=== PATIENT | female | born 1965 | race Caucasian/White ===

== ENCOUNTER 2016-08-25 09:31 | Emergency (ER) | payer BC, OTHER ==
--- NOTE | 2016-08-25 09:58 | UC ---
Throat Pain/Nasal Franck HPI - HPI Summary HPI Summary: complaint of nasal congestion and cough that started approx 10 days ago dry cough which is worse ant night coughing so hard last night that she vomited 1x sinus pressure that is increasing frequent headaches mild sore throat from coughing feels fatigued denies fever and chills has been mucinex and tylenol tessalon without much relief - History of Current Complaint Chief Complaint: UCRespiratory Stated Complaint: COUGH EARS SORE THROAT ACHY Time Seen by Provider: 08/25/16 09:50 Hx Obtained From: Patient - Allergies/Home Medications Allergies/Adverse Reactions: Allergies Allergy/AdvReac Type Severity Reaction Status Date / Time Amoxicillin Allergy Rash Verified 08/25/16 09:38 Home Medications: Home Medications Acetaminophen [Tylenol] 650 mg PO Q4H PRN 08/25/16 [History Confirmed 08/25/16] Venlafaxine TAB (NF) [Effexor TAB (NF)] 25 mg PO DAILY 08/25/16 [History Confirmed 08/25/16] PMH/Surg Hx/FS Hx/Imm Hx Previously Healthy: Yes - Surgical History Surgical History: Yes Surgery Procedure, Year, and Place: breast reduction - Family History Known Family History: Negative: Cardiac Disease, Hypertension, Diabetes - Social History Occupation: Employed Full-time Lives: With Family Alcohol Use: None Substance Use Type: None Smoking Status (MU): Never Smoked Tobacco - Immunization History Most Recent Influenza Vaccination: 2016 Review of Systems Constitutional: Negative Skin: Negative Eyes: Negative ENT: Sore Throat, Ear Ache, Nasal Discharge Respiratory: Cough Cardiovascular: Negative Gastrointestinal: Negative Genitourinary: Negative Motor: Negative Neurovascular: Negative Musculoskeletal: Negative Neurological: Headache Psychological: Negative All Other Systems Reviewed And Are Negative: Yes Physical Exam Triage Information Reviewed: Yes Appearance: Well-Appearing, Well-Nourished Vital Signs: Initial Vital Signs Temp 97 F 08/25/16 09:40 Pulse 78 08/25/16 09:40 Resp 18 08/25/16 09:40 Pulse Ox 98 08/25/16 09:40 Vital Signs Reviewed: Yes Eyes: Positive: Conjunctiva Clear ENT: Positive: Pharyngeal erythema, Nasal congestion, Nasal drainage, TMs normal , Other: - frontal and maxillary sinus tenderness. Negative: TM bulging Neck: Positive: No Lymphadenopathy Respiratory: Positive: Lungs clear, Normal breath sounds, No respiratory distress, No accessory muscle use Cardiovascular: Positive: RRR, No Murmur, Pulses Normal Abdomen Description: Positive: Nontender, Soft Musculoskeletal: Positive: No Edema Neurological Exam: Normal Psychological Exam: Normal Skin Exam: Normal Throat Pain/Nasal Course/Dx - Differential Dx/Diagnosis Differential Diagnosis/HQI/PQRI: Sinusitis, Tonsillitis, URI Provider Diagnoses: sinusitis Discharge - Discharge Plan Condition: Stable Disposition: HOME Prescriptions: Azithromycin TAB* [Zithromax TAB (Z-FEMI) 250 mg #6 tabs] 2 tab PO .TODAY, THEN 1 DAILY #1 femi Guaifenesin-Codeine [Cheratussin AC] 10 syp PO TID #120 syp MDD 30 ml Patient Education Materials: Sinusitis (ED) Forms: *Work Release Referrals: Non Staff,Doctor [Primary Care Provider] - Donna White [Nurse Practitioner] - Additional Instructions: Please take antibiotic as directed Increase fluids and rest Take acetaminophen or ibuprofen for fever or pain Please review your discharge instructions. If your symptoms do not improve please call your primary care provider or return to urgent care.
[2016-08-25 10:13] VITALS: BP 136/72
== END 2016-08-25 10:14 | disposition home or self-care (01) ==
LOC: UCCORT 09:31
DX: J32.9 Chronic sinusitis, unspecified (principal); Z88.1 Allergy status to other antibiotic agents
CPT/HCPCS: 99212; G0463

== ENCOUNTER 2017-04-06 11:37 | Emergency (ER) | payer BC ==
[2017-04-06 11:53] VITALS: BP 183/99
--- NOTE | 2017-04-06 12:21 | UC ---
Throat Pain/Nasal Franck HPI - HPI Summary HPI Summary: 51 female presents to with complaints of sinus congestion, pain, headache, ear fullness and cough that has been ongoing for the past 2-3 days. States it has worsened over the past couple of days and she does not feel mucinex and ibuprofen is helping. Patient admits to also having some fever/chills. Gets sinus infections frequently. No other complaints. PMHx includes HTN, has not taken medication in the past couple of days. Also complains of fatigue and body aches. Is bringing some stuff up when she coughs on occasion. Denies blood. Denies trouble breathing and chest pain. Coughing is worse when laying down, due to post nasal drip. - History of Current Complaint Chief Complaint: UCRespiratory Stated Complaint: SINUS EARS Time Seen by Provider: 04/06/17 11:45 Hx Obtained From: Patient Onset/Duration: Sudden Onset, Lasting Days, Still Present, Worse Since Severity: Moderate Pain Intensity: 7 Pain Scale Used: 0-10 Numeric Cough: Productive - at times Associated Signs & Symptoms: Positive: Sinus Discomfort, Nasal Discharge, Fever - Allergies/Home Medications Allergies/Adverse Reactions: Allergies Allergy/AdvReac Type Severity Reaction Status Date / Time Ciprofloxacin [From Cipro] Allergy Severe Rash Verified 04/06/17 11:44 Amoxicillin Allergy Rash Verified 04/06/17 11:44 Home Medications: Home Medications Hydrochlorothiazide TAB* [Hydrodiuril TAB*] 25 mg PO DAILY 04/06/17 [History Confirmed 04/06/17] Ibuprofen TAB* [Advil TAB*] 400 mg PO Q6H PRN 04/06/17 [History Confirmed ] Phenylephrine-Diphenhydramine- [MUCINEX FAST-MAX DAY/NIGH (Tablet)] 1 mis PO PRN 04/06/17 [History] PMH/Surg Hx/FS Hx/Imm Hx Cardiovascular History: Hypertension - Surgical History Surgical History: Yes Surgery Procedure, Year, and Place: breast reduction - Family History Known Family History: Negative: Cardiac Disease, Hypertension, Diabetes - Social History Alcohol Use: None Substance Use Type: None Smoking Status (MU): Never Smoked Tobacco - Immunization History Most Recent Influenza Vaccination: FALL 2016 Review of Systems Constitutional: Fever, Chills, Fatigue ENT: Ear Ache, Nasal Discharge, Sinus Congestion, Sinus Pain/Tenderness Respiratory: Cough Cardiovascular: Negative Gastrointestinal: Negative Musculoskeletal: Myalgia Neurological: Headache All Other Systems Reviewed And Are Negative: Yes Physical Exam Triage Information Reviewed: Yes Appearance: No Pain Distress, Well-Nourished, Ill-Appearing Vital Signs: Initial Vital Signs Temp 97.6 F 04/06/17 11:46 Pulse 81 04/06/17 11:46 Resp 20 04/06/17 11:46 BP 183/99 04/06/17 11:46 Pulse Ox 99 04/06/17 11:46 elevated BP noted, patient has HTN and has not taken medication in the past 2 days due to feeling ill. asymptomatic. encouraged taking as it is very important. rest of vitals normal. Vital Signs Reviewed: Yes Eyes: Positive: Conjunctiva Clear ENT: Positive: Normal ENT inspection, Hearing grossly normal, Pharynx normal - post nasal drip noted, Nasal congestion, TMs normal - serous effusion behind right TM, Sinus tenderness, Uvula midline. Negative: Tonsillar swelling, Tonsillar exudate Dental: Positive: Percussion Tenderness @ - maxillary b/l and frontal, Cervical Lymphadenopathy Neck: Positive: Supple, Nontender, Tenderness @ - tonsillar Respiratory: Positive: Chest non-tender, Lungs clear, Normal breath sounds, No respiratory distress, No accessory muscle use. Negative: Decreased breath sounds, Accessory muscle use, Rhonchi, Stridor, Wheezing Cardiovascular: Positive: RRR, No Murmur, Pulses Normal Abdomen Description: Positive: Nontender Bowel Sounds: Positive: Present Musculoskeletal: Positive: Strength Intact Neurological: Positive: Alert Skin Exam: Normal Throat Pain/Nasal Course/Dx - Course Course Of Treatment: appears to be suffering from sinusitis. will treat with zpack due to allergy and flonase. tessalon pearls as needed for coughing especially at bedtime. mucinex and iburpofen. hot showers, warm compresses, saline rinses, fluids and rest. follow up. aware of worsening signs and symptoms. take BP medication and recheck with pcp in 1-2 weeks. no other concerns at this time. normal vitals otherwise. - Differential Dx/Diagnosis Differential Diagnosis/HQI/PQRI: Pharyngitis, Sinusitis, URI Provider Diagnoses: sinusitis Discharge - Discharge Plan Condition: Stable Disposition: HOME Prescriptions: Azithromycin TAB* [Zithromax TAB (Z-FEMI) 250 mg #6 tabs] 2 tab PO .TODAY, THEN 1 DAILY #1 femi Benzonatate CAP* [Tessalon 100 MG CAP*] 100 mg PO TID PRN #30 cap PRN Reason: Cough Fluticasone NASAL SPRAY 50MCG* [Flonase NASAL SPRAY 50MCG*] 2 spray BOTH NARES DAILY #1 btl Patient Education Materials: Sinusitis (ED), Upper Respiratory Infection (ED), Warm Compress or Soak (ED) Forms: *Work Release Referrals: Donna White [Primary Care Provider] - Additional Instructions: Take prescribed medication as directed to help with infection. Tessalon pearls for coughing fits, as needed. Recommend continuing mucinex and ibuprofen as well. Increase fluid intake, get plenty of rest. Hot showers, warm compresses, salt water gargles and saline rinses. Wash hands frequently. Cover mouth when coughing. Claritin or zyrtec for future use to help with excess fluid build up. Any new or worsening signs/symptoms please seek medical attention. Follow up with PCP. Start taking blood pressure medication daily as directed, recheck with PCP in 1- 2 weeks.
== END 2017-04-06 12:35 | disposition home or self-care (01) ==
LOC: UCCORT 11:37
DX: J32.9 Chronic sinusitis, unspecified (principal); I10 Essential (primary) hypertension; Z88.1 Allergy status to other antibiotic agents
CPT/HCPCS: 99212; G0463

== ENCOUNTER 2018-03-03 07:37 | Emergency (ER) | payer BC ==
[2018-03-03 07:49] VITALS: BP 159/89
--- NOTE | 2018-03-03 08:07 | UC ---
Skin Complaint HPI - HPI Summary HPI Summary: 52-year-old female comes in to clinic today with a chief complaint of rash. This started yesterday. Started mostly on the abdomen and it was slightly itchy. Overnight he got worse. It's on the abdomen and onto the left flank of the lower chest and upper abdomen. She also has back pain in the lower thoracic region. No fevers or chills. Touching makes it worse. No new detergents. No known infectious contacts. She took some acetaminophen that did not help with the pain. - History of Current Complaint Chief Complaint: UCRash Time Seen by Provider: 03/03/18 07:46 Stated Complaint: SKIN CONCERN Pain Intensity: 5 - Allergy/Home Medications Allergies/Adverse Reactions: Allergies Allergy/AdvReac Type Severity Reaction Status Date / Time ciprofloxacin Allergy Intermediate Rash Verified 03/03/18 07:50 Review of Systems Constitutional: Negative Skin: Rash Eyes: Negative ENT: Negative Respiratory: Negative Cardiovascular: Negative Gastrointestinal: Negative Motor: Negative Neurovascular: Negative Musculoskeletal: Other: - lower thoracic back pain Neurological: Negative Psychological: Negative Is Patient Immunocompromised?: No All Other Systems Reviewed And Are Negative: Yes PMH/Surg Hx/FS Hx/Imm Hx Cardiovascular History: Hypertension - Surgical History Surgical History: Yes Surgery Procedure, Year, and Place: breast reduction - Family History Known Family History: Positive: Diabetes Negative: Cardiac Disease, Hypertension - Social History Alcohol Use: None Substance Use Type: None Smoking Status (MU): Never Smoked Tobacco - Immunization History Most Recent Influenza Vaccination: FALL 2016 Physical Exam Triage Information Reviewed: Yes Appearance: Well-Appearing, No Pain Distress, Well-Nourished Vital Signs: Initial Vital Signs Temp 97.9 F 03/03/18 07:45 Pulse 81 03/03/18 07:45 Resp 15 03/03/18 07:45 BP 159/89 03/03/18 07:45 Pulse Ox 97 03/03/18 07:45 Vital Signs Reviewed: Yes Eye Exam: Normal Eyes: Positive: Conjunctiva Clear Neck exam: Normal Neck: Positive: Supple Respiratory: Positive: No respiratory distress Abdomen Description: Positive: Other: - There is mild tenderness to palpation on the anterior abdomen at the site of the rash. Musculoskeletal Exam: Normal Musculoskeletal: Positive: Strength Intact, ROM Intact Neurological Exam: Normal Neurological: Positive: Alert, Muscle Tone Normal Psychological Exam: Normal Psychological: Positive: Age Appropriate Behavior Skin: Positive: Other - There is a confluent erythematous rash on the upper abdomen and onto the left lower chest or some raised areas I don't see any vesicles at this time. Course/Dx - Course Course Of Treatment: The most part probable cause for the rashes shingles. Cellulitis is also a possibility. Patient does not have a fever and does not appear toxic. If it is an allergic reaction would be a localized contact dermatitis. At this time we'll treat with valacyclovir and also Keflex. She can take Benadryl as needed. Let her know if she started with a fever her More ill she needs to get rechecked right away. - Diagnoses Provider Diagnoses: RASH Discharge - Sign-Out/Discharge Documenting (check all that apply): Patient Departure All imaging exams completed and their final reports reviewed: No Studies - Discharge Plan Condition: Stable Disposition: HOME Prescriptions: Cephalexin CAP* [Keflex CAP*] 500 mg PO QID #40 cap HYDROcodone/ACETAMIN 5-325 MG* [[place] 5-325 TAB*] 1 tab PO Q4H PRN #20 tab MDD 6 PRN Reason: Pain Valacyclovir HCl [Valacyclovir] 1 gm PO TID #21 tab Patient Education Materials: Acute Rash (ED), Shingles (ED) Referrals: Donna White [Primary Care Provider] - Additional Instructions: FOLLOW UP WITH YOUR DOCTOR IF NOT COMPLETELY IMPROVED. GET RECHECKED FOR ANY WORSENING OF YOUR CONDITION; PAIN, FEVER, YOU FEEL ILL OR QUESTIONS OR CONCERNS. - Billing Disposition and Condition Condition: STABLE Disposition: Home
== END 2018-03-03 08:14 | disposition home or self-care (01) ==
LOC: UCCORT 07:37
DX: R21 Rash and other nonspecific skin eruption (principal); I10 Essential (primary) hypertension; Z88.1 Allergy status to other antibiotic agents
CPT/HCPCS: 99212; G0463

== ENCOUNTER 2018-08-23 07:59 | Emergency (ER) | payer BC ==
[2018-08-23 08:16] VITALS: BP 156/91
[2018-08-23] MEDS ORDERED: Albuterol/Ipratropium NEB.SOL* Albuterol 2.5 MG/Ipratropium 0.5 MG 3 ML INH ONE (08:25)
--- NOTE | 2018-08-23 08:57 | UC ---
Respiratory Complaint HPI - HPI Summary HPI Summary: 53 old female who has had cold symptoms since last , approximate 5 days ago. She denies fever, mildly productive cough of clear sputum. She is a nonsmoker and no history of asthma. - History of Current Complaint Chief Complaint: UCRespiratory Stated Complaint: COUGH SINUS ACHY HEADACHE Time Seen by Provider: 08/23/18 08:09 Hx Obtained From: Patient ?: No Onset/Duration: Gradual Onset Timing: Intermittent Episodes Severity Initially: Mild Severity Currently: Mild - She states she also has some sinus pressure. Pain Intensity: 10 Character: Cough: Productive - Productive cough of clear sputum. Alleviating Factors: Nothing Associated Signs And Symptoms: Positive: URI, Nasal Congestion, Sinus Discomfort - Allergies/Home Medications Allergies/Adverse Reactions: Allergies Allergy/AdvReac Type Severity Reaction Status Date / Time ciprofloxacin Allergy Intermediate Rash Verified 08/23/18 08:10 Home Medications: Home Medications Ibuprofen TAB* [Advil TAB*] 400 mg PO Q6H PRN 08/23/18 [History Confirmed ] guaiFENesin ER TAB [Mucinex*] 1,200 mg PO BID PRN 08/23/18 [History Confirmed ] guaiFENesin LIQ* [Robitussin*] 10 ml PO Q4H PRN 08/23/18 [History Confirmed ] PMH/Surg Hx/FS Hx/Imm Hx Previously Healthy: Yes - Surgical History Surgical History: Yes Surgery Procedure, Year, and Place: breast reduction - Family History Known Family History: Positive: Diabetes Negative: Cardiac Disease, Hypertension - Social History Occupation: Employed Full-time Alcohol Use: None Substance Use Type: None Smoking Status (MU): Never Smoked Tobacco - Immunization History Most Recent Influenza Vaccination: FALL 2016 Review of Systems All Other Systems Reviewed And Are Negative: Yes ENT: Positive: Nasal Discharge - Her nasal coryza, Sinus Congestion, Sinus Pain/ Tenderness Respiratory: Positive: Cough - Dry nonproductive cough. When it is rarely productive it is clear sputum. Is Patient Immunocompromised?: No Physical Exam Triage Information Reviewed: Yes Appearance: Well-Appearing, No Pain Distress, Well-Nourished Vital Signs: Initial Vital Signs Temp 98.2 F 08/23/18 08:12 Pulse 91 08/23/18 08:12 Resp 16 04/29/19 08:12 BP 156/91 08/23/18 08:12 Pulse Ox 98 08/23/18 08:12 Vital Signs Reviewed: Yes ENT: Positive: Pharynx normal, Nasal congestion, Nasal drainage - Nasal coryza, TMs normal, Sinus tenderness, Uvula midline. Negative: Tonsillar swelling, Tonsillar exudate, Trismus, Muffled voice, Hoarse voice Neck exam: Normal Neck: Positive: Supple, Nontender, No Lymphadenopathy Respiratory: Positive: Lungs clear, No respiratory distress, No accessory muscle use, Wheezing - Patient has a mild wheeze with forced expiration. Respiratory Course/Dx - Course Course Of Treatment: DuoNeb treatment was given which resulted in a feeling of better air movement, her lungs remained clear even with coughing. At this point I believe this is more of a bronchitis and viral illness and I'm going to start her on prednisone as well as benzonatate for her cough. She is to follow-up with her primary care provider near the end of the week if no improvement. - Differential Dx/Diagnosis Provider Diagnosis: Bronchitis Discharge - Sign-Out/Discharge Documenting (check all that apply): Patient Departure All imaging exams completed and their final reports reviewed: No Studies - Discharge Plan Condition: Fair Disposition: HOME Prescriptions: Benzonatate CAP* [Tessalon 100 MG CAP*] 100 mg PO TID PRN #21 cap PRN Reason: Cough predniSONE [Prednisone 20 MG TAB] 40 mg PO DAILY 5 Days #10 tablet Patient Education Materials: Acute Bronchitis (ED) Forms: *Work Release Referrals: Donna White [Primary Care Provider] - Additional Instructions: Increase fluids, take prednisone with food, follow-up with your primary care provider in 3 or 4 days if no improvement or if worsening symptoms. - Billing Disposition and Condition Condition: FAIR Disposition: Home - Attestation Statements Provider Attestation: I was available for consult. This patient was seen by the BEATRIZ. The patient was not presented to, seen by, or examined by me. -Roque
== END 2018-08-23 09:03 | disposition home or self-care (01) ==
LOC: UCCORT 07:59
DX: J40 Bronchitis, not specified as acute or chronic (principal); Z88.1 Allergy status to other antibiotic agents
CPT/HCPCS: 99212; A9270-GY; G0463

== ENCOUNTER 2018-08-24 11:37 | Emergency (ER) | payer BC ==
[2018-08-24] MEDS ORDERED: Albuterol 2.5 MG/3 ML NEB.SOL* (0.083%) INH ONE (12:35)
--- NOTE | 2018-08-24 12:48 | UC ---
Respiratory Complaint HPI - HPI Summary HPI Summary: cough x 5 days cough is dry and harsh, worse at night no nasal congestion , no pnd, no fever, no chills , + wheezing, sob was seen yesterday , placed on Prednisone and tessalon not much improvements - History of Current Complaint Chief Complaint: UCRespiratory Stated Complaint: CONGESTION/COUGH Time Seen by Provider: 08/24/18 12:29 Hx Obtained From: Patient Onset/Duration: Gradual Onset, Lasting Days - 5, Still Present Timing: Constant Severity Initially: Moderate Severity Currently: Moderate Pain Intensity: 0 Character: Cough: Nonproductive Aggravating Factors: Exertion, Deep Breaths Alleviating Factors: Bronchodilator Associated Signs And Symptoms: Positive: Dyspnea, Wheezing. Negative: Dizziness , URI, Nasal Congestion, Hoarseness - Allergies/Home Medications Allergies/Adverse Reactions: Allergies Allergy/AdvReac Type Severity Reaction Status Date / Time ciprofloxacin Allergy Intermediate Rash Verified 08/24/18 12:22 PMH/Surg Hx/FS Hx/Imm Hx Cardiovascular History: Hypertension - Surgical History Surgical History: Yes Surgery Procedure, Year, and Place: breast reduction - Family History Known Family History: Positive: Diabetes Negative: Cardiac Disease, Hypertension - Social History Alcohol Use: None Substance Use Type: None Smoking Status (MU): Never Smoked Tobacco - Immunization History Most Recent Influenza Vaccination: FALL 2016 Review of Systems All Other Systems Reviewed And Are Negative: Yes Constitutional: Positive: Negative Skin: Positive: Negative Eyes: Positive: Negative ENT: Positive: Negative Respiratory: Positive: Shortness Of Breath, Cough Is Patient Immunocompromised?: No Physical Exam Triage Information Reviewed: Yes Appearance: Well-Appearing, No Pain Distress, Well-Nourished Vital Signs: Initial Vital Signs Temp 97.2 F 08/24/18 12:17 Pulse 74 08/24/18 12:17 Resp 16 08/24/18 12:17 BP 180/103 08/24/18 12:17 Pulse Ox 95 08/24/18 12:17 Vital Signs Reviewed: Yes Eye Exam: Normal Eyes: Positive: Conjunctiva Clear ENT: Positive: Normal ENT inspection, Hearing grossly normal, Pharynx normal. Negative: Nasal congestion, Nasal drainage Neck: Positive: Supple, Nontender, No Lymphadenopathy Respiratory: Positive: Chest non-tender, Wheezing Cardiovascular: Positive: RRR, No Murmur Skin Exam: Normal Respiratory Course/Dx - Differential Dx/Diagnosis Provider Diagnosis: Bronchitis, Hypertension Discharge - Sign-Out/Discharge Documenting (check all that apply): Patient Departure All imaging exams completed and their final reports reviewed: No Studies - Discharge Plan Condition: Stable Disposition: HOME Prescriptions: Albuterol HFA INHALER* [Ventolin HFA Inhaler*] 2 puff INH Q6H PRN #1 mdi PRN Reason: Wheezing Codeine Phosphate/Guaifenesin [Cheratussin AC] 10 ml PO Q8H PRN #120 ml MDD 30 ml PRN Reason: Cough Patient Education Materials: Acute Bronchitis (ED), Hypertension (ED) Forms: *Work Release Referrals: Donna White [Primary Care Provider] - 7 Days - Billing Disposition and Condition Condition: STABLE Disposition: Home
[2018-08-24 13:51] VITALS: BP 180/103
== END 2018-08-24 13:08 | disposition home or self-care (01) ==
LOC: UCCORT 11:37
DX: J40 Bronchitis, not specified as acute or chronic (principal); I10 Essential (primary) hypertension; Z88.1 Allergy status to other antibiotic agents
CPT/HCPCS: 99212; G0463